=== PATIENT | male | born 1975 | race Caucasian/White ===

== ENCOUNTER 2018-11-20 20:10 | Emergency (ER) | payer OTHER ==
[~2018-11-20] VITALS: Ht 182.9 cm; Wt 133.8 kg
[2018-11-20 20:32] VITALS: BP 139/79
[2018-11-20] MEDS ORDERED: TETANUS-DIPTH-ACEL PERTUSSIS 0.5ML SYRG IM ONE (21:15)
[2018-11-20] MEDS ORDERED: cefTRIAXone SOD 1,000 MG VL IM ONE (21:15)
== END 2018-11-20 22:00 | disposition home or self-care (01) ==
LOC: ER 20:10
DX: S61.210A Laceration without foreign body of right index finger without damage to nail, initial encounter (principal); W45.8XXA Other foreign body or object entering through skin, initial encounter; Y93.G1 Activity, food preparation and clean up; Y92.090 Kitchen in other non-institutional residence as the place of occurrence of the external cause; Y99.8 Other external cause status
CPT/HCPCS: 12001; 90471; 90715; 96372; 99283; J0696